=== PATIENT | female | born 1995 | race Caucasian/White ===

== ENCOUNTER 2016-07-05 18:16 | Emergency (ER) | payer BC, MEDICAID ==
[~2016-07-05] VITALS: Ht 157.5 cm; Wt 61.0 kg
[~2016-07-05 18:16] MED LIST: IBUP600T26 PO; LEVO.025 PO; LORTA5 PO; METO5TAB PO; OMEP20CA5 PO; OMEP20TA PO; POLY119S PO; POTA0.15 PO; PROM25SU8 PO
[2016-07-05 18:21] VITALS: BP 124/83; PULSE 123; RESP 17; TEMP 99.7; O2SAT 98
[2016-07-05] MEDS ORDERED: SODIUM CHLOR 0.9% 1000 ML INJ 1,000 ML IV SCH (18:37)
[2016-07-05 18:45] VITALS: O2SAT 98
[2016-07-05 18:45] LABS: BLOOD, URINE LARGE (NEG); GLUCOSE,URINE NEG (NEG); KETONE, URINE 15 mg/dL (NEG)
[2016-07-05] MEDS ORDERED: SODIUM CHLORIDE 0.9% FLUSH 5 ML FLUSH IVF PRN (18:45)
[2016-07-05] MEDS ORDERED: ONDANSETRON HCL 4 MG/2 ML VIAL IVP ONE (18:45)
[2016-07-05 18:55] LABS: AUTOMATED NEUTROPHIL # 8.6 TH/MM3 (1.8-7.7); BASOPHIL % 0.4 % (0.0-2.0); EOSINOPHIL # 0.1 TH/MM3 (0-0.4); HEMATOCRIT 40.8 % (35.0-46.0); HEMO FLAGS DIFF FINAL; LYMPH % 9.3 % (9.0-44.0); MEAN CELL VOLUME 88.9 FL (80.0-100.0); MEAN CORPUSCULAR HEMOGLOBIN 30.2 PG (27.0-34.0); MONO % 8.4 % (0.0-8.0); NEUT % 80.9 % (16.0-70.0); PLATELET COUNT 197 TH/MM3 (150-450); RED BLOOD COUNT 4.59 MIL/MM3 (4.00-5.30); RED CELL DISTRIBUTION WIDTH 13.4 % (11.6-17.2); WHITE BLOOD COUNT 10.6 TH/MM3 (4.0-11.0)
[2016-07-05 18:57] LABS: NITRITE,URINE POS (NEG)
[2016-07-05 19:00] LABS: METHOD OF COLLECTION CLEAN CATCH; MUCUS URINE MOD /lpf (OCC); URINE COLOR YELLOW (YELLW/STRAW)
[2016-07-05] MEDS ORDERED: KETOROLAC TROMETHAMINE 30 MG/ML (IVP) VIAL IV PUSH ONE (19:00)
[2016-07-05 19:01] LABS: BACTERIA, URINE MOD /hpf; COMMENT (UR) CULTURE INDICATED; CULTURE IF INDICATED CULTURE INDICATED; RBC, URINE 100-200 /hpf (0-3); SQUAMOUS EPITHELIAL CELL URINE 0-5 /hpf (0-5)
[2016-07-05 19:02] LABS: CHLORIDE 105 MEQ/L (98-107); POTASSIUM 3.4 MEQ/L (3.5-5.1); SODIUM (NA) 141 MEQ/L (136-145)
[2016-07-05 19:05] LABS: ANION GAP 11 MEQ/L (5-15); BICARBONATE 25.5 MEQ/L (21.0-32.0)
[2016-07-05 19:06] LABS: BLOOD UREA NITROGEN 8 MG/DL (7-18)
[2016-07-05 19:08] LABS: ALT (GPT) 25 U/L (9-42)
[2016-07-05 19:09] LABS: AST (GOT) 11 U/L (16-38); GLOMERULAR FILTRATION RATE 103 ML/MIN (>89)
[2016-07-05 19:10] LABS: TOTAL BILIRUBIN ADULT 0.4 MG/DL (0.2-1.0)
[2016-07-05 19:11] LABS: ALKALINE PHOSPHATASE 46 U/L (45-117)
[2016-07-05 19:42] VITALS: BP 125/79; PULSE 82; RESP 16; O2SAT 100
--- NOTE | 2016-07-05 20:08 | RADHPO ---
EXAM DATE/TIME: 07/05/2016 19:51 [facility] COMPARISON: No previous studies available for comparison. INDICATIONS : Left sided flank pain for three days. ORAL CONTRAST: No oral contrast ingested. RADIATION DOSE: 8.9 CTDIvol (mGy) MEDICAL HISTORY : Pancreatitis. Gastroesophageal reflux disease. Ovarian cyst. Gastroparesis. SURGICAL HISTORY : None. ENCOUNTER: Initial ACUITY: 3 days PAIN SCALE: 6/10 LOCATION: Left flank TECHNIQUE: Volumetric scanning of the abdomen and pelvis was performed. Using automated exposure control and ad justment of the mA and/or kV according to patient size, radiation dose was kept as low as reasonably achievable to obtain optimal diagnostic quality images. FINDINGS: LOWER LUNGS: The visualized lower lungs are clear. LIVER: Homogeneous density without lesion. There is no dilation of the biliary tree. No calcified gallston es. SPLEEN: Normal size without lesion. PANCREAS: Within normal limits. KIDNEYS: Normal in size and shape. There is no mass, stone, or hydronephrosis. ADRENAL GLANDS: Within normal limits. VASCULAR: There is no aortic aneurysm. BOWEL/MESENTERY: The stomach, small bowel, and colon demonstrate no acute abnormality. There is no free intraperitone al air or fluid. ABDOMINAL WALL: Within normal limits. RETROPERITONEUM: There is no lymphadenopathy. BLADDER: There appears to be mild concentric bladder wall thickening and there is slight perivesical induratio n. Appearance is suggestive of cystitis. REPRODUCTIVE: Small volume of free pelvic fluid. INGUINAL: There is no lymphadenopathy or hernia. MUSCULOSKELETAL: Within normal limits for patient age. CONCLUSION: Findings suggestive of cystitis. Minimal nonspecific pelvic fluid. Paul Aguilera MD on July 05, 2016 at 20:04 Board Certified Radiologist. This report was verified electronically.
[2016-07-05] MEDS ORDERED: CIPROFLOXACIN 500 MG TAB PO ONE (20:15)
--- NOTE | 2016-07-05 20:22 | PD ---
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 Patient states that this is different than her normal gastroparesis her pancreatitis pain. However she did say that she had epigastric pain earlier in the week. She states she's had nausea and vomited once or twice which is nonbloody and nonbilious in nature. Patient denies any fever. She still states that she had an episode of hematuria which she thought might of been vaginal in nature but she examined herself closely and found that she was passing some mucus from her urethral orifice. Patient states her periods are fairly regular and she just got over 12 weeks ago. Denies possibility for at this time. Patient states her abdominal pain is sharp in nature and nonradiating PFSH Past Medical History Anxiety: No Depression: Yes Cancer: No Cardiovascular Problems: No Diminished Hearing: No Endocrine: No Gastrointestinal Disorders: Yes (INFLAMED COLON, GASTROPARESIS, idiopathic pancreatitis) GERD: Yes Genitourinary: No Headaches: Yes Immune Disorder: No Musculoskeletal: No Neurologic: No Psychiatric: Yes Reproductive: Yes Respiratory: No Immunizations Current: Yes Pancreatitis: Yes Tetanus Vaccination: Unknown Influenza Vaccination: No ?: Not LMP: 06/23/2016 Past Surgical History Surgical History: No Previous Surgery Social History Alcohol Use: No Tobacco Use: Yes (1/2 ppd) Substance Use: No Allergies-Medications (Allergen,Severity, Reaction): Coded Allergies: PEANUTS (Verified Allergy, Severe, Anaphylaxis, 07/05/16) Reported Meds & Prescriptions Reported Meds & Active Scripts Active Zofran Odt (Ondansetron Odt) 4 Mg Tab 4 Mg SL Q6HR PRN Cipro (Ciprofloxacin HCl) 500 Mg Tab 500 Mg PO BID 7 Days Ibuprofen 600 Mg Tab 600 Mg PO Q6H PRN Review of Systems Except as stated in HPI: all other systems reviewed are Neg Physical Exam Narrative GENERAL: Well-developed well-nourished in no apparent distress, pleasant demeanor. SKIN: Warm and dry. HEAD: Atraumatic. Normocephalic. EYES: Pupils equal and round. No scleral icterus. No injection or drainage. ENT: No nasal bleeding or discharge. Mucous membranes pink and moist. NECK: Trachea midline. No JVD. CARDIOVASCULAR: Regular rate and rhythm. No murmur appreciated. RESPIRATORY: No accessory muscle use. Clear to auscultation. Breath sounds equal bilaterally. GASTROINTESTINAL: Abdomen soft, non-tender, nondistended. Hepatic and splenic margins not palpable. Abdomen is benign however there is some mild CVA tenderness on the left and negative on the right. Genitourinary: Offered and patient declined. MUSCULOSKELETAL: No obvious deformities. No clubbing. No cyanosis. No edema. NEUROLOGICAL: Awake and alert. No obvious cranial nerve deficits. Motor grossly within normal limits. Normal speech. PSYCHIATRIC: Appropriate mood and affect; insight and judgment normal. Data Data Last Documented VS Vital Signs Date Time Temp Pulse Resp B/P Pulse Ox O2 Delivery O2 Flow Rate FiO2 07/05/16 21:27 85 16 132/77 99 07/05/16 19:42 Room Air 07/05/16 18:21 99.7 Orders Urinalysis - C+S If Indicated (07/05/16 18:22) Ed Urine Pregnancytest Poc (07/05/16 18:22) Complete Blood Count With Diff (07/05/16 18:37) Comprehensive Metabolic Panel (07/05/16 18:37) Lipase (07/05/16 18:37) Iv Access Insert/Monitor (07/05/16 18:37) Ecg Monitoring (07/05/16 18:37) Oximetry (07/05/16 18:37) Ondansetron Inj (Zofran Inj) (07/05/16 18:45) Sodium Chlor 0.9% 1000 Ml Inj (Ns 1000 M (07/05/16 18:37) Sodium Chloride 0.9% Flush (Ns Flush) (07/05/16 18:45) Ketorolac Inj (Toradol Inj) (07/05/16 19:00) Urine Culture (07/05/16 18:20) Ed Poc Ultrasound (07/05/16 ) Ct Abd/Pel W/O Iv Contrast (07/05/16 ) Ciprofloxacin (Cipro) (07/05/16 20:15) Labs Laboratory Tests Test 07/05/16 07/05/16 18:20 18:45 Urine Collection Type CLEAN CATCH Urine Color YELLOW Urine Turbidity MOD Urine pH 6.0 Urine Specific [place] 1.028 Urine Protein 100 mg/dL Urine Glucose (UA) NEG mg/dL Urine Ketones 15 mg/dL Urine Occult Blood LARGE Urine Nitrite POS Urine Bilirubin NEG Urine Leukocyte Esterase TRACE Urine RBC 100-200 /hpf Urine WBC 50-99 /hpf Urine Squamous Epithelial 0-5 /hpf Cells Urine Bacteria MOD /hpf Urine Mucus MOD /lpf Microscopic Urinalysis Comment CULTURE INDICATED White Blood Count 10.6 TH/MM3 Red Blood Count 4.59 MIL/MM3 Hemoglobin 13.9 GM/DL Hematocrit 40.8 % Mean Corpuscular Volume 88.9 FL Mean Corpuscular Hemoglobin 30.2 PG Mean Corpuscular Hemoglobin 34.0 % Concent Red Cell Distribution Width 13.4 % Platelet Count 197 TH/MM3 Mean Platelet Volume 8.0 FL Neutrophils (%) (Auto) 80.9 % Lymphocytes (%) (Auto) 9.3 % Monocytes (%) (Auto) 8.4 % Eosinophils (%) (Auto) 1.0 % Basophils (%) (Auto) 0.4 % Neutrophils # (Auto) 8.6 TH/MM3 Lymphocytes # (Auto) 1.0 TH/MM3 Monocytes # (Auto) 0.9 TH/MM3 Eosinophils # (Auto) 0.1 TH/MM3 Basophils # (Auto) 0.0 TH/MM3 CBC Comment DIFF FINAL Differential Comment Sodium Level 141 MEQ/L Potassium Level 3.4 MEQ/L Chloride Level 105 MEQ/L Carbon Dioxide Level 25.5 MEQ/L Anion Gap 11 MEQ/L Blood Urea Nitrogen 8 MG/DL Creatinine 0.73 MG/DL Estimat Glomerular Filtration 103 ML/MIN Rate Random Glucose 86 MG/DL Calcium Level 8.9 MG/DL Total Bilirubin 0.4 MG/DL Aspartate Amino Transf 11 U/L (AST/SGOT) Alanine Aminotransferase 25 U/L (ALT/SGPT) Alkaline Phosphatase 46 U/L Total Protein 7.4 GM/DL Albumin 3.7 GM/DL Lipase 133 U/L [facility] Medical Decision Making Medical Screen Exam Complete: Yes Emergency Medical Condition: Yes Differential Diagnosis Kidney stone, UTI, pyelonephritis, gastroparesis unlikely, pancreatitis, cholecystitis highly unlikely, gastritis. Narrative Course Patient was roomed in the emergency department, she was given Toradol IV after test was negative. She states she was still having some pain but appears comfortable. She drove herself here and is planning to drive home precluding any narcotic administration in the emergency department. She does appear comfortable and not in any distress. Laboratory workup the CBC BMP lipase and LFTs within normal limits. Physical examination. Urine is quite cloudy with mucous stranding. Is nitrate positive. Clinically would nitrate positive urine and some mild CVA tenderness she has pyelonephritis. An ultrasound was conducted at the bedside showing some possible left-sided hydronephrosis CT examination is therefore indicated to rule out kidney stones. CT examination performed and shows no acute kidney stones or any other abnormality. The patient was tolerating her ciprofloxacin prior to discharge. Discussed with her follow-up with a primary care physician and return to ED criteria including intractable nausea and vomiting and high fever. Procedures Procedure Narrative Bedside ultrasound: Views of the left and right kidney were obtained and patient possibly has a very mild amount of hydronephrosis on the left side. Normal on the right. No free fluid was observed in the abdomen. Diagnosis Primary Impression: Pyelonephritis Med/Other Pt SpecificInfo: Prescription(s) given Scripts Ondansetron Odt (Zofran Odt)4 Mg Tab4 Mg SL Q6HR PRN (Nausea/Vomiting) #30 TAB Ref 0 Prov:Yang Meek MD 07/05/16 Ciprofloxacin (Cipro)500 Mg [id number] Mg PO BID 7 Days Ref 0 Prov:Yang Meek MD 07/05/16 Ibuprofen 600 Mg [id number] Mg PO Q6H PRN (PAIN SCALE 1 TO 10) #20 TAB Ref 0 Prov:Yang Meek MD 07/05/16 Disposition: 01 DISCHARGE HOME Condition: Stable Yang Meek MD Jul 05, 2016 20:22
[2016-07-05] MEDS ORDERED: CIPR-9 PO (20:56)
[2016-07-05] MEDS ORDERED: ZOFR4TAB3 SL (20:56)
[2016-07-05] MEDS ORDERED: IBUP-232 PO (20:56)
[2016-07-05 21:27] VITALS: BP 132/77
[2016-07-13] MEDS ORDERED: NYST1000 SWISH-SWAL (15:22)
[2016-07-13] MEDS ORDERED: AUGM875T PO (15:22)
== END 2016-07-05 21:30 | disposition home or self-care (01) ==
LOC: PHED 18:16
DX: N12 Tubulo-interstitial nephritis, not specified as acute or chronic (principal); F17.210 Nicotine dependence, cigarettes, uncomplicated
CPT/HCPCS: 74176; 80053; 81001; 83690; 84703; 85025; 87077; 87086; 87186; 96361; 96374; 96375; 99284; J1885; J2405; J7030

== ENCOUNTER 2016-12-03 23:08 | Emergency (ER) | payer BC ==
[~2016-12-03 23:08] MED LIST changes: +AUGM875T PO; -IBUP600T26 PO; -LEVO.025 PO; -LORTA5 PO; -METO5TAB PO; +NYST1000 SWISH-SWAL; -OMEP20CA5 PO; -OMEP20TA PO; -POLY119S PO; -POTA0.15 PO; -PROM25SU8 PO; +WELL150T PO
[2016-12-03 23:09] VITALS: BP 122/87; PULSE 100; RESP 18; TEMP 98.8; O2SAT 100
[2016-12-03] MEDS ORDERED: REGL5TAB PO (23:52)
[2016-12-04 00:27] LABS: BACTERIA, URINE RARE /hpf; BLOOD, URINE LARGE (NEG); COMMENT (UR) CULTURE INDICATED; CULTURE IF INDICATED CULTURE INDICATED; GLUCOSE,URINE NEG (NEG); KETONE, URINE NEG (NEG); MUCUS URINE FEW /lpf (OCC); NITRITE,URINE NEG (NEG); PH, URINE 6.5 (5.0-8.5); SQUAMOUS EPITHELIAL CELL URINE 2 /hpf (0-5); URINE COLOR YELLOW (YELLW/STRAW)
[2016-12-04] MEDS ORDERED: ONDANSETRON HCL 4 MG/2 ML VIAL IVP ONE (00:45)
[2016-12-04] MEDS ORDERED: SODIUM CHLORIDE 0.9% FLUSH 10 ML FLUSH IV FLUSH PRN (00:45)
[2016-12-04] MEDS ORDERED: KETOROLAC TROMETHAMINE 30 MG/ML (IVP) VIAL IVP ONE (00:45)
[2016-12-04 00:53] LABS: AUTOMATED NEUTROPHIL # 8.2 TH/MM3 (1.8-7.7); BASOPHIL # 0.1 TH/MM3 (0-0.2); BASOPHIL % 0.6 % (0.0-2.0); EOSINOPHIL # 0.3 TH/MM3 (0-0.4); EOSINOPHIL % 2.6 % (0.0-4.0); HEMATOCRIT 35.2 % (35.0-46.0); HEMO FLAGS DIFF FINAL; LYMPH % 12.6 % (9.0-44.0); LYMPHOCYTE # 1.4 TH/MM3 (1.0-4.8); MEAN CELL VOLUME 79.5 FL (80.0-100.0); MEAN CORPUSCULAR HEMOGLOBIN 26.9 PG (27.0-34.0); MEAN CORPUSCULAR HGB CONC 33.8 % (32.0-36.0); MONO % 8.1 % (0.0-8.0); NEUT % 76.1 % (16.0-70.0); PLATELET COUNT 266 TH/MM3 (150-450); RED BLOOD COUNT 4.43 MIL/MM3 (4.00-5.30); RED CELL DISTRIBUTION WIDTH 15.8 % (11.6-17.2); WHITE BLOOD COUNT 10.8 TH/MM3 (4.0-11.0)
--- NOTE | 2016-12-04 01:13 | PD ---
HPI Chief Complaint: Complaint Time Seen by Provider: 00:28 Travel History International Travel<30 days: No Contact w/Intl Traveler<30days: No Traveled to known affect area: No History of Present Illness HPI This is a 20-year-old female with history of gastroparesis and kidney stones on the left presents emergency department for burning urination and right-sided flank and right lower quadrant abdominal pain. Patient states this been going on and off for the past few days, it was mild nausea and intermittent fever she states to 100F. Patient states she went to the hospital was diagnosed with urinary tract infection she stated that she never actually saw a provider but was placed on Bactrim which she has been taking. She states this is not having any improvement. She denies any chest pain shortness of breath. Patient states symptoms are moderate and gradually worsening. PFSH Past Medical History Anxiety: No Depression: Yes Cancer: No Cardiovascular Problems: No Diminished Hearing: No Endocrine: No Gastrointestinal Disorders: Yes (INFLAMED COLON, GASTROPARESIS, idiopathic pancreatitis) GERD: Yes Genitourinary: No Headaches: Yes Immune Disorder: No Musculoskeletal: No Neurologic: No Psychiatric: Yes Reproductive: Yes Respiratory: No Immunizations Current: Yes Pancreatitis: Yes ?: Not LMP: 11/30/16 Dilation and Curettage (D&C): Yes (09/18/16) Social History Alcohol Use: No Tobacco Use: Yes (1PPD ) Substance Use: No Allergies-Medications (Allergen,Severity, Reaction): Coded Allergies: PEANUTS (Verified Allergy, Severe, Anaphylaxis, 12/03/16) Reported Meds & Prescriptions Reported Meds & Active Scripts Active Ditropan (Oxybutynin Chloride) 5 Mg Tab 5 Mg PO Q12HR Reported Reglan (Metoclopramide HCl) 5 Mg Tab 5 Mg PO BID Review of Systems Except as stated in HPI: all other systems reviewed are Neg Physical Exam Narrative GENERAL: Well-developed well-nourished, slightly uncomfortable. Nontoxic appearance. SKIN: Focused skin assessment warm/dry. HEAD: Atraumatic. Normocephalic. EYES: Pupils equal and round. No scleral icterus. No injection or drainage. ENT: No nasal bleeding or discharge. Mucous membranes pink and moist. NECK: Trachea midline. No JVD. CARDIOVASCULAR: Regular rate and rhythm. No murmur appreciated. RESPIRATORY: No accessory muscle use. Clear to auscultation. Breath sounds equal bilaterally. GASTROINTESTINAL: Abdomen soft, non-tender, nondistended. Hepatic and splenic margins not palpable. Minimal right-sided CVA tenderness and minimal right lower quadrant abdominal pain. The psoas sign is weakly positive. Dr. sign negative. MUSCULOSKELETAL: No obvious deformities. No clubbing. No cyanosis. No edema. NEUROLOGICAL: Awake and alert. No obvious cranial nerve deficits. Motor grossly within normal limits. Normal speech. PSYCHIATRIC: Appropriate mood and affect; insight and judgment normal. Data Data Last Documented VS Vital Signs Date Time Temp Pulse Resp B/P Pulse Ox O2 Delivery O2 Flow Rate FiO2 12/04/16 02:37 92 16 128/82 99 Room Air 12/03/16 23:09 98.8 Orders Urinalysis - C+S If Indicated (12/03/16 23:58) Ed Urine Pregnancytest Poc (12/03/16 23:58) Urine Culture (12/04/16 00:05) Complete Blood Count With Diff (12/04/16 00:36) Comprehensive Metabolic Panel (12/04/16 00:36) Lipase (12/04/16 00:36) Ct Abd/Pel W Iv Contrast(Rout) (12/04/16 00:36) Iv Access Insert/Monitor (12/04/16 00:36) Ecg Monitoring (12/04/16 00:36) Oximetry (12/04/16 00:36) Ondansetron Inj (Zofran Inj) (12/04/16 00:45) Sodium Chloride 0.9% Flush (Ns Flush) (12/04/16 00:45) Ketorolac Inj (Toradol Inj) (12/04/16 00:45) Iohexol 350 Inj (Omnipaque 350 Inj) (12/04/16 01:45) Labs Laboratory Tests Test 12/04/16 12/04/16 00:05 00:48 Urine Color YELLOW Urine Turbidity HAZY Urine pH 6.5 Urine Specific [place] 1.014 Urine Protein 30 mg/dL Urine Glucose (UA) NEG mg/dL Urine Ketones NEG mg/dL Urine Occult Blood LARGE Urine Nitrite NEG Urine Bilirubin NEG Urine Urobilinogen LESS THAN 2.0 MG/DL Urine Leukocyte Esterase LARGE Urine RBC /hpf Urine WBC 168 /hpf Urine Squamous Epithelial 2 /hpf Cells Urine Bacteria RARE /hpf Urine Mucus FEW /lpf Microscopic Urinalysis Comment CULTURE INDICATED White Blood Count 10.8 TH/MM3 Red Blood Count 4.43 MIL/MM3 Hemoglobin 11.9 GM/DL Hematocrit 35.2 % Mean Corpuscular Volume 79.5 FL Mean Corpuscular Hemoglobin 26.9 PG Mean Corpuscular Hemoglobin 33.8 % Concent Red Cell Distribution Width 15.8 % Platelet Count 266 TH/MM3 Mean Platelet Volume 8.6 FL Neutrophils (%) (Auto) 76.1 % Lymphocytes (%) (Auto) 12.6 % Monocytes (%) (Auto) 8.1 % Eosinophils (%) (Auto) 2.6 % Basophils (%) (Auto) 0.6 % Neutrophils # (Auto) 8.2 TH/MM3 Lymphocytes # (Auto) 1.4 TH/MM3 Monocytes # (Auto) 0.9 TH/MM3 Eosinophils # (Auto) 0.3 TH/MM3 Basophils # (Auto) 0.1 TH/MM3 CBC Comment DIFF FINAL Differential Comment Sodium Level 141 MEQ/L Potassium Level 3.8 MEQ/L Chloride Level 106 MEQ/L Carbon Dioxide Level 27.1 MEQ/L Anion Gap 8 MEQ/L Blood Urea Nitrogen 10 MG/DL Creatinine 0.75 MG/DL Estimat Glomerular Filtration 100 ML/MIN Rate Random Glucose 81 MG/DL Calcium Level 9.4 MG/DL Total Bilirubin 0.1 MG/DL Aspartate Amino Transf 16 U/L (AST/SGOT) Alanine Aminotransferase 24 U/L (ALT/SGPT) Alkaline Phosphatase 50 U/L Total Protein 8.0 GM/DL Albumin 3.8 GM/DL Lipase 159 U/L [facility] Medical Decision Making Medical Screen Exam Complete: Yes Emergency Medical Condition: Yes Differential Diagnosis UTI, pyelonephritis, kidney stone, appendicitis Narrative Course Patient was roomed emergency department, given Toradol which relieved her symptoms. Her UA does show red blood cells and white blood cells, the patient is on her cycle now. Nitrate negative urine however. CAT scan of her abdomen was performed which shows: Last 24 hours Impressions Abdomen/Pelvis CT 12/04/16 0036 Signed Impressions: Service Date/Time: Sunday, December 04, 2016 01:39 - CONCLUSION: 1. Circumferential wall thickening of the urinary bladder, presumably on the basis of cystitis. This is apparently recurrent has similar findings were seen on the prior CT. 2. Trace free fluid in the pelvic cul-de-sac, generally a physiologic amount for patient this age. 3. Normal appendix. Paul Walker MD Patient's blood work was reassuring. Discuss results with the patient and my opinion that this appears to be recurrent cystitis, need to consider another cause for cystitis other than urinary tract infection including interstitial cystitis. Encouraged patient to follow up with urologist. She is feeling better after Toradol. I discussed with her to continue taking the Bactrim. She will be placed on to [facility] for possible bladder spasms. Diagnosis Primary Impression: Cystitis Med/Other Pt SpecificInfo: Prescription(s) given Scripts Oxybutynin (Ditropan)5 Mg Tab5 Mg PO Q12HR #60 TAB Ref 0 Prov:Yang Meek MD 12/04/16 Disposition: 01 DISCHARGE HOME Condition: Stable Yang Meek MD Dec 04, 2016 01:13
[2016-12-04 01:14] LABS: ALKALINE PHOSPHATASE 50 U/L (45-117); TOTAL BILIRUBIN ADULT 0.1 MG/DL (0.2-1.0)
[2016-12-04 01:18] LABS: ALT (GPT) 24 U/L (9-42); ANION GAP 8 MEQ/L (5-15); AST (GOT) 16 U/L (16-38); BICARBONATE 27.1 MEQ/L (21.0-32.0); BLOOD UREA NITROGEN 10 MG/DL (7-18); CHLORIDE 106 MEQ/L (98-107); GLOMERULAR FILTRATION RATE 100 ML/MIN (>89); POTASSIUM 3.8 MEQ/L (3.5-5.1); SODIUM (NA) 141 MEQ/L (136-145)
[2016-12-04 01:30] VITALS: BP 136/90; PULSE 98; RESP 14; O2SAT 98
[2016-12-04] MEDS ORDERED: IOHEXOL 350 MG/ML 10 ML VIAL (for RAD DIAG) IV ONE (01:45)
--- NOTE | 2016-12-04 02:03 | RADRPT ---
EXAM DATE/TIME: 12/04/2016 01:39 [facility] COMPARISON: CT ABDOMEN & PELVIS W/O CONTRAST, July 05, 2016, 19:51. INDICATIONS : Right lower quadrant pain. IV CONTRAST: cc Omnipaque 350 (iohexol) IV ORAL CONTRAST: No oral contrast ingested. RADIATION DOSE: CTDIvol (mGy) MEDICAL HISTORY : Pancreatitis. Gastroparesis. Gastroesophageal reflux disease.Ovarian cysts. SURGICAL HISTORY : None. ENCOUNTER: Initial ACUITY: 3 days PAIN SCALE: 8/10 LOCATION: Right lower quadrant TECHNIQUE: Volumetric scanning of the abdomen and pelvis was performed. Using automated exposure control and ad justment of the mA and/or kV according to patient size, radiation dose was kept as low as reasonably achievable to obtain optimal diagnostic quality images. FINDINGS: LOWER LUNGS: The visualized lower lungs are clear. LIVER: Homogeneous density without lesion. There is no dilation of the biliary tree. No calcified gallston es. SPLEEN: Normal size without lesion. PANCREAS: Within normal limits. KIDNEYS: Normal in size and shape. There is no mass, stone or hydronephrosis. ADRENAL GLANDS: Within normal limits. VASCULAR: There is no aortic aneurysm. BOWEL/MESENTERY: The stomach, small bowel, and colon demonstrate no acute abnormality. No free air. The appendix is w ell-visualized, normal. ABDOMINAL WALL: Within normal limits. RETROPERITONEUM: There is no lymphadenopathy. BLADDER: Marked, diffuse wall thickening. REPRODUCTIVE: CT appearance of the uterus and bilateral adnexal regions within normal limits. Trace free fluid seen in the pelvic cul-de-sac. INGUINAL: There is no lymphadenopathy or hernia. MUSCULOSKELETAL: Within normal limits for patient age. CONCLUSION: 1. Circumferential wall thickening of the urinary bladder, presumably on the basis of cystitis. This is apparently recurrent has similar findings were seen on the prior CT. 2. Trace free fluid in the pelvic cul-de-sac, generally a physiologic amount for patient this age. 3. Normal appendix. Paul Walker MD on December 04, 2016 at 1:58 Board Certified Radiologist. This report was verified electronically.
[2016-12-04] MEDS ORDERED: OXYB5TAB10 PO (02:32)
[2016-12-04 02:37] VITALS: BP 128/82; PULSE 92; RESP 16; O2SAT 99
== END 2016-12-04 02:52 | disposition home or self-care (01) ==
LOC: NEPC 23:08
DX: N30.90 Cystitis, unspecified without hematuria (principal); B95.7 Other staphylococcus as the cause of diseases classified elsewhere; B95.1 Streptococcus, group B, as the cause of diseases classified elsewhere; R10.31 Right lower quadrant pain; R11.0 Nausea; F17.200 Nicotine dependence, unspecified, uncomplicated; Z86.59 Personal history of other mental and behavioral disorders; Z87.19 Personal history of other diseases of the digestive system; Z87.42 Personal history of other diseases of the female genital tract
CPT/HCPCS: 74177; 80053; 81001; 83690; 84703; 85025; 86403; 87077; 87086; 87186; 96374; 96375; 99285; J1885; J2405; Q9967

== ENCOUNTER 2017-06-05 08:49 | Emergency (ER) | payer BC ==
[~2017-06-05] VITALS: Ht 160 cm; Wt 69.0 kg
[~2017-06-05 08:49] MED LIST changes: -AUGM875T PO; -NYST1000 SWISH-SWAL; +OXYB5TAB8 PO; +REGL5TAB PO
[2017-06-05 08:55] VITALS: BP 125/56; PULSE 102; RESP 16; TEMP 97.6; O2SAT 100
[2017-06-05] MEDS ORDERED: TYLETAB34 PO (09:01)
[2017-06-05] MEDS ORDERED: SODIUM CHLOR 0.9% 1000 ML INJ 1,000 ML IV SCH (09:13)
[2017-06-05] MEDS ORDERED: MORPHINE SULFATE 4 MG/ML INJ IV PUSH ONE (09:15)
[2017-06-05] MEDS ORDERED: ONDANSETRON HCL 4 MG/2 ML VIAL IVP ONE (09:15)
--- NOTE | 2017-06-05 09:22 | PD ---
HPI Chief Complaint: Abdominal Pain Time Seen by Provider: 09:12 Travel History International Travel<30 days: No Contact w/Intl Traveler<30days: No Traveled to known affect area: No History of Present Illness HPI onset of epigastric pain that radiated to her back started at 3am today, 02/04, assoc with n/v. patient denies any alleviating/aggravating factors. pt denies assoc factors such as fever/squires/cp/d/vag discharge/hmaturia/urgency/frequency all: peanut pmhx: pancreatitis, ovarian cyst, gerd, kidney infection, pshx:denies PFSH Past Medical History ADHD: No Autoimmune Disease: Yes Anxiety: No Depression: Yes Cancer: No Cardiovascular Problems: No Diabetes: No Diminished Hearing: No Endocrine: Yes Gastrointestinal Disorders: Yes (INFLAMED COLON, GASTROPARESIS, idiopathic pancreatitis) GERD: Yes Genitourinary: No Headaches: Yes Immune Disorder: No Implanted Vascular Access Dvce: No Musculoskeletal: No Neurologic: No Psychiatric: Yes Reproductive: Yes Respiratory: No Immunizations Current: Yes Migraines: Yes Pancreatitis: Yes Seizures: No Thyroid Disease: Yes (hypo) Ulcer: No Tetanus Vaccination: < 5 Years Influenza Vaccination: No ?: Not LMP: 05/05/17 Ovarian Cysts: Yes Dilation and Curettage (D&C): Yes (09/18/16) Social History Alcohol Use: No Tobacco Use: Yes (1PPD ) Substance Use: No Allergies-Medications (Allergen,Severity, Reaction): Coded Allergies: peanut (Unverified Allergy, Severe, Anaphylaxis, 06/05/17) Reported Meds & Prescriptions Reported Meds & Active Scripts Active Reported Tylenol-Codeine #3 (Acetaminophen-Codeine) 300-30 mg Tab 1-2 Tab PO Q4H PRN Review of Systems Except as stated in HPI: all other systems reviewed are Neg General / Constitutional: No: Fever Eyes: No: Visual changes HENT: No: Headaches Cardiovascular: No: Chest Pain or Discomfort Respiratory: No: Shortness of Breath Gastrointestinal: Positive: Nausea, Vomiting, Abdominal Pain Genitourinary: No: Dysuria Musculoskeletal: No: Pain Skin: No Rash Neurologic: No: Weakness Psychiatric: No: Depression Endocrine: No: Polydipsia Hematologic/Lymphatic: No: Easy Bruising Physical Exam Narrative GENERAL: SKIN: Warm and dry. HEAD: Atraumatic. Normocephalic. EYES: Pupils equal and round. No scleral icterus. No injection or drainage. ENT: No nasal bleeding or discharge. Mucous membranes pink and moist. NECK: Trachea midline. No JVD. CARDIOVASCULAR: Regular rate and rhythm. RESPIRATORY: No accessory muscle use. Clear to auscultation. Breath sounds equal bilaterally. GASTROINTESTINAL: Abdomen soft, epig tt percussion, nondistended. MUSCULOSKELETAL: Extremities without clubbing, cyanosis, or edema. No obvious deformities. NEUROLOGICAL: Awake and alert. No obvious cranial nerve deficits. Motor grossly within normal limits. Five out of 5 muscle strength in the arms and legs. Normal speech. PSYCHIATRIC: Appropriate mood and affect; insight and judgment normal. Data Data Last Documented VS Vital Signs Date Time Temp Pulse Resp B/P (MAP) Pulse Ox O2 Delivery O2 Flow Rate FiO2 06/05/17 10:22 98 Room Air 06/05/17 09:02 16 06/05/17 08:55 97.6 102 125/56 (79) Orders Orders Urinalysis - C+S If Indicated (06/05/17 08:52) Ed Urine Pregnancytest Poc (06/05/17 08:52) Complete Blood Count With Diff (06/05/17 09:13) Comprehensive Metabolic Panel (06/05/17 09:13) Lipase (06/05/17 09:13) Ct Abd/Pel W/O Iv Contrast (06/05/17 09:13) Iv Access Insert/Monitor (06/05/17 09:13) Ecg Monitoring (06/05/17 09:13) Oximetry (06/05/17 09:13) NPO (06/05/17 09:13) Morphine Inj (Morphine Inj) (06/05/17 09:15) Ondansetron Inj (Zofran Inj) (06/05/17 09:15) Sodium Chlor 0.9% 1000 Ml Inj (Ns 1000 M (06/05/17 09:13) Urine Culture (06/05/17 09:18) Ceftriaxone Inj (Rocephin Inj) (06/05/17 10:15) Labs Laboratory Tests Test 06/05/17 09:18 06/05/17 09:27 Urine Collection Type CLEAN CATCH Urine Color YELLOW Urine Turbidity SLIGHTY CLOUDY Urine pH 8.0 Urine Specific [place] 1.024 Urine Protein 30 mg/dL Urine Glucose (UA) NEG mg/dL Urine Ketones NEG mg/dL Urine Occult Blood TRACE Urine Nitrite POS Urine Bilirubin NEG Urine Leukocyte Esterase LARGE Urine RBC 0-3 /hpf Urine WBC 25-49 /hpf Urine WBC Clumps OCC Urine Bacteria MANY /hpf Microscopic Urinalysis Comment CULTURE INDICATED White Blood Count 8.2 TH/MM3 Red Blood Count 4.51 MIL/MM3 Hemoglobin 12.3 GM/DL Hematocrit 36.8 % Mean Corpuscular Volume 81.6 FL Mean Corpuscular Hemoglobin 27.2 PG Mean Corpuscular Hemoglobin Concent 33.3 % Red Cell Distribution Width 15.2 % Platelet Count 244 TH/MM3 Mean Platelet Volume 8.1 FL Neutrophils (%) (Auto) 77.1 % Lymphocytes (%) (Auto) 12.0 % Monocytes (%) (Auto) 7.4 % Eosinophils (%) (Auto) 3.0 % Basophils (%) (Auto) 0.5 % Neutrophils # (Auto) 6.4 TH/MM3 Lymphocytes # (Auto) 1.0 TH/MM3 Monocytes # (Auto) 0.6 TH/MM3 Eosinophils # (Auto) 0.2 TH/MM3 Basophils # (Auto) 0.0 TH/MM3 CBC Comment DIFF FINAL Differential Comment Blood Urea Nitrogen 14 MG/DL Creatinine 0.87 MG/DL Random Glucose 92 MG/DL Total Protein 7.5 GM/DL Albumin 3.7 GM/DL Calcium Level 9.0 MG/DL Alkaline Phosphatase 45 U/L Aspartate Amino Transf (AST/SGOT) 12 U/L Alanine Aminotransferase (ALT/SGPT) 26 U/L Total Bilirubin 0.4 MG/DL Sodium Level 139 MEQ/L Potassium Level 3.8 MEQ/L Chloride Level 106 MEQ/L Carbon Dioxide Level 25.4 MEQ/L Anion Gap 8 MEQ/L Estimat Glomerular Filtration Rate 83 ML/MIN Lipase 151 U/L [facility] Medical Decision Making Medical Screen Exam Complete: Yes Emergency Medical Condition: Yes Medical Record Reviewed: Yes Differential Diagnosis biliary colic v gastrititis v pancreatitis v pregn related Narrative Course PT NOT FOUND TO HAVE PANCREATITIS, ON CT NO COLITIS/APPY/KIDNEY STONE BUT DID NOTE BLADDER INFLAMMATION....NL CBC, NL CMP WELL. Diagnosis Primary Impression: ASCENDING CYSTITIS Patient Instructions: General Instructions, Urinary Tract Infection in Women ( ED) Scripts Ondansetron Odt (Zofran Odt) 4 Mg Tab 4 MG SL Q6HR Y for Nausea/Vomiting, #20 TAB 0 Refills Prov: Sacha Zazueta MD 06/05/17 Fluconazole (Diflucan) 150 Mg Tab 150 MG PO ONCE for Infection, #1 TAB 0 Refills Prov: Sacha Zazueta MD 06/05/17 Ciprofloxacin (Cipro) 500 Mg Tab 500 MG PO BID for Infection for 10 Days, #20 TAB 0 Refills Prov: Sacha Zazueta MD 06/05/17 Disposition: 01 DISCHARGE HOME Condition: Stable Sacha Zazueta MD Jun 05, 2017 09:22
[2017-06-05 09:29] LABS: AUTOMATED NEUTROPHIL # 6.4 TH/MM3 (1.8-7.7); BASOPHIL % 0.5 % (0.0-2.0); EOSINOPHIL # 0.2 TH/MM3 (0-0.4); HEMATOCRIT 36.8 % (35.0-46.0); MEAN CELL VOLUME 81.6 FL (80.0-100.0); MEAN CORPUSCULAR HEMOGLOBIN 27.2 PG (27.0-34.0); MEAN CORPUSCULAR HGB CONC 33.3 % (32.0-36.0); MONO % 7.4 % (0.0-8.0); NEUT % 77.1 % (16.0-70.0); PLATELET COUNT 244 TH/MM3 (150-450); RED BLOOD COUNT 4.51 MIL/MM3 (4.00-5.30); RED CELL DISTRIBUTION WIDTH 15.2 % (11.6-17.2); WHITE BLOOD COUNT 8.2 TH/MM3 (4.0-11.0)
[2017-06-05 09:30] LABS: HEMO FLAGS DIFF FINAL
[2017-06-05 09:34] LABS: GLUCOSE,URINE NEG (NEG); KETONE, URINE NEG (NEG); NITRITE,URINE POS (NEG)
[2017-06-05 09:37] LABS: BLOOD, URINE TRACE (NEG)
[2017-06-05 09:39] LABS: METHOD OF COLLECTION CLEAN CATCH; URINE COLOR YELLOW (YELLW/STRAW)
[2017-06-05 09:40] LABS: BACTERIA, URINE MANY /hpf; COMMENT (UR) CULTURE INDICATED; CULTURE IF INDICATED CULTURE INDICATED; RBC, URINE 0-3 /hpf (0-3)
[2017-06-05 09:52] LABS: BICARBONATE 25.4 MEQ/L (21.0-32.0)
[2017-06-05 09:54] LABS: ANION GAP 8 MEQ/L (5-15); CHLORIDE 106 MEQ/L (98-107); POTASSIUM 3.8 MEQ/L (3.5-5.1); SODIUM (NA) 139 MEQ/L (136-145)
[2017-06-05 09:55] LABS: GLOMERULAR FILTRATION RATE 83 ML/MIN (>89)
[2017-06-05 09:56] LABS: ALT (GPT) 26 U/L (9-42)
[2017-06-05 09:57] LABS: TOTAL BILIRUBIN ADULT 0.4 MG/DL (0.2-1.0)
[2017-06-05 09:58] LABS: ALKALINE PHOSPHATASE 45 U/L (45-117)
[2017-06-05 10:02] LABS: AST (GOT) 12 U/L (16-38)
[2017-06-05 10:03] LABS: BLOOD UREA NITROGEN 14 MG/DL (7-18)
--- NOTE | 2017-06-05 10:13 | RADRPT ---
EXAM DATE/TIME: 06/05/2017 09:53 [facility] COMPARISON: CT ABDOMEN & PELVIS W CONTRAST, December 04, 2016, 1:39. CT ABDOMEN & PELVIS W/O CONTRAST, July 05 017, 19:51. INDICATIONS : Upper abdominal pain.Nausea, vomiting. ORAL CONTRAST: No oral contrast ingested. RADIATION DOSE: 11.08 CTDIvol (mGy) MEDICAL HISTORY : Pancreatitis. Gastroparesis, kidney infections, ovarian cyst. SURGICAL HISTORY : None. ENCOUNTER: Initial ACUITY: 1 day PAIN SCALE: 6/10 LOCATION: middle toward right upper abdomen TECHNIQUE: Volumetric scanning of the abdomen and pelvis was performed. Using automated exposure control and ad justment of the mA and/or kV according to patient size, radiation dose was kept as low as reasonably achievable to obtain optimal diagnostic quality images. DICOM format image data is available electro nically for review and comparison. FINDINGS: LOWER LUNGS: The visualized lower lungs are clear. LIVER: Homogeneous density without lesion. There is no dilation of the biliary tree. Under distended gallb ladder. No calcified gallstones. SPLEEN: Normal size without lesion. PANCREAS: Within normal limits. KIDNEYS: Normal in size and shape. There is no mass, stone, or hydronephrosis. ADRENAL GLANDS: Within normal limits. VASCULAR: There is no aortic aneurysm. BOWEL/MESENTERY: The stomach, small bowel, and colon demonstrate no acute abnormality. Appendix is visualized and norm al in appearance. There is no free intraperitoneal air or fluid. ABDOMINAL WALL: Within normal limits. RETROPERITONEUM: There is no lymphadenopathy. BLADDER: Redemonstration of circumferential bladder wall thickening REPRODUCTIVE: 2.1 x 2.7 cm left adnexal cystic lesion, likely ovarian cyst. Uterus is unremarkable for age. INGUINAL: There is no lymphadenopathy or hernia. MUSCULOSKELETAL: Within normal limits for patient age. CONCLUSION: 1. Redemonstration of circumferential wall thickening of the urinary bladder the, the presumably cyst itis. This is a recurrent finding noted on multiple prior CT examinations. 2. 2.7 cm left adnexal cystic lesion, likely ovarian cyst. 3. Normal appendix. 4. No radiopaque renal calculi or obstructive uropathy. Say Omalley MD on June 05, 2017 at 10:08 Board Certified Radiologist. This report was verified electronically.
[2017-06-05] MEDS ORDERED: cefTRIAXone INJ 1,000 MG in SODIUM CHLORIDE 0.9% INJ 100 ML IV ONE (10:15)
[2017-06-05 10:22] VITALS: O2SAT 98
[2017-06-05] MEDS ORDERED: CIPR-9 PO (11:40)
[2017-06-05] MEDS ORDERED: ZOFR4TAB3 SL (11:40)
[2017-06-05] MEDS ORDERED: DIFL150T PO (11:40)
== END 2017-06-05 12:31 | disposition home or self-care (01) ==
LOC: PHED 08:49
DX: N30.80 Other cystitis without hematuria (principal); R11.2 Nausea with vomiting, unspecified; M54.9 Dorsalgia, unspecified; B96.20 Unspecified Escherichia coli [E. coli] as the cause of diseases classified elsewhere; E07.9 Disorder of thyroid, unspecified; F17.200 Nicotine dependence, unspecified, uncomplicated; Z86.59 Personal history of other mental and behavioral disorders; Z87.19 Personal history of other diseases of the digestive system; Z87.42 Personal history of other diseases of the female genital tract
CPT/HCPCS: 74176; 80053; 81001; 83690; 84703; 85025; 87077; 87086; 87186; 96361; 96365; 96366; 96375; 99285; J0696; J2270; J2405; J7030

== ENCOUNTER 2017-09-08 14:39 | Emergency (ER) | payer BC ==
[~2017-09-08] VITALS: Ht 157.5 cm; Wt 63.0 kg
[~2017-09-08 14:39] MED LIST changes: +CIPR-9 PO; +DIFL150T PO; -OXYB5TAB8 PO; -REGL5TAB PO; +TYLETAB34 PO; -WELL150T PO; +ZOFR4TAB3 SL
[2017-09-08 14:51] VITALS: BP 153/69; PULSE 86; RESP 16; TEMP 97.9; O2SAT 99
[2017-09-08] MEDS ORDERED: ZOFR4TAB3 SL (15:18)
--- NOTE | 2017-09-08 15:25 | PD ---
HPI Chief Complaint: GI Complaint Time Seen by Provider: 15:07 Travel History International Travel<30 days: No Contact w/Intl Traveler<30days: No Traveled to known affect area: No History of Present Illness HPI The patient was seen and examined in the presence of the nurse. She complains of abdominal cramps and nausea and vomiting. Duration 2 days. She has history of gastroparesis. She gets frequent attacks like this. She denies diarrhea or fever. Symptom severity is mild. No alleviating factors PFSH Past Medical History ADHD: No Autoimmune Disease: Yes Anxiety: No Depression: Yes Cancer: No Cardiovascular Problems: No Diabetes: No Diminished Hearing: No Endocrine: Yes Gastrointestinal Disorders: Yes (INFLAMED COLON, GASTROPARESIS, idiopathic pancreatitis) GERD: Yes Genitourinary: No Headaches: Yes Immune Disorder: No Implanted Vascular Access Dvce: No Musculoskeletal: No Neurologic: No Psychiatric: Yes Reproductive: Yes Respiratory: No Immunizations Current: Yes Migraines: Yes Pancreatitis: Yes Seizures: No Thyroid Disease: Yes (hypo) Ulcer: No Tetanus Vaccination: Unknown ?: Not LMP: 2 WEEKS Ovarian Cysts: Yes Dilation and Curettage (D&C): Yes (09/18/16) Social History Alcohol Use: No Tobacco Use: Yes (1PPD ) Substance Use: No Allergies-Medications (Allergen,Severity, Reaction): Coded Allergies: peanut (Unverified Allergy, Severe, Anaphylaxis, 09/08/17) codeine (Verified Allergy, Unknown, 09/08/17) Reported Meds & Prescriptions Reported Meds & Active Scripts Active Zofran Odt (Ondansetron Odt) 4 Mg Tab 4 Mg SL Q6HR PRN Review of Systems General / Constitutional: No: Fever HENT: No: Headaches Cardiovascular: No: Chest Pain or Discomfort Respiratory: No: Cough Gastrointestinal: Positive: Nausea, Vomiting, Abdominal Pain Physical Exam Narrative GENERAL: Well-nourished, well-developed patient in no apparent distress. SKIN: Focused skin assessment reveals no rash and nodules. Skin is Warm and dry. HEAD: Atraumatic. Normocephalic. EYES: Pupils equal and round. No scleral icterus. No injection or drainage. ENT: No nasal bleeding or discharge. Mucous membranes pink and moist. NECK: Trachea midline. No JVD. CARDIOVASCULAR: Regular rate and rhythm. No murmur appreciated. RESPIRATORY: No accessory muscle use. Clear to auscultation. Breath sounds equal bilaterally. GASTROINTESTINAL: Abdomen soft, non-tender, nondistended. Hepatic and splenic margins not palpable. MUSCULOSKELETAL: No obvious deformities. No clubbing. No cyanosis. No edema. NEUROLOGICAL: Awake and alert. No obvious cranial nerve deficits. Motor grossly within normal limits. Normal speech. PSYCHIATRIC: Appropriate mood and affect; insight and judgment normal. Data Data Last Documented VS Vital Signs Date Time Temp Pulse Resp B/P (MAP) Pulse Ox O2 Delivery O2 Flow Rate FiO2 09/08/17 15:02 16 09/08/17 14:51 97.9 86 153/69 (97) 99 Orders Orders Ed Urine Pregnancytest Poc (09/08/17 15:17) Ondansetron Odt (Zofran Odt) (09/08/17 15:30) MDM Medical Decision Making Medical Screen Exam Complete: Yes Emergency Medical Condition: Yes Medical Record Reviewed: Yes Differential Diagnosis Gastroparesis, irritable bowel syndrome, gastroenteritis Narrative Course I have reviewed the patient's electronic medical record. She has had extensive workup here. 3 CTs of abdomen and pelvis last year. She has had ultrasound of gallbladder and gastric emptying scan Abdomen is soft and benign and nontender She looks euvolemic She is laughing and smiling and does not look to be in any distress We discussed options and I offered labs and IV fluids but she does not want to do it unless absolutely necessary which I do not believe it is I gave her a dose of Zofran Urine ordered I will prescribe some Zofran I offered some gastroparesis meds such as Reglan but she says they never help her and she does not want any Recommend primary care and GI follow-up Diagnosis Primary Impression: Gastroparesis Additional Impression: Nausea and vomiting Qualified Codes: R11.2 - Nausea with vomiting, unspecified Additional Instructions: Follow-up with primary care and GI I have recommended clear liquids for 24 hours, then gradually advance as tolerated. Med/Other Pt SpecificInfo: Prescription(s) given Scripts Ondansetron Odt (Zofran Odt) 4 Mg Tab 4 MG SL Q6HR Y for Nausea/Vomiting, #20 TAB 0 Refills Prov: Jostin Gruber MD 09/08/17 Disposition: 01 DISCHARGE HOME Condition: Stable Jostin Gruber MD Sep 08, 2017 15:25
[2017-09-08] MEDS ORDERED: ONDANSETRON ODT 4 MG TAB PO ONE (15:30)
[2017-09-08 16:00] LABS: BILIRUBIN, URINE NEG (NEG); BLOOD, URINE TRACE (NEG); GLUCOSE,URINE NEG (NEG); KETONE, URINE 15 mg/dL (NEG); NITRITE,URINE NEG (NEG); URINE COLOR YELLOW (YELLW/STRAW); URINE LEUKOCYTE ESTERASE NEG (NEG)
[2017-09-08 16:09] LABS: BACTERIA, URINE FEW /hpf; MUCUS URINE FEW /lpf (OCC); SQUAMOUS EPITHELIAL CELL URINE > 8 /hpf (0-5); WBC, URINE 0-2 /hpf (0-5)
== END 2017-09-08 16:10 | disposition home or self-care (01) ==
LOC: PHED 14:39
DX: K31.84 Gastroparesis (principal); F17.200 Nicotine dependence, unspecified, uncomplicated
CPT/HCPCS: 81001; 84703; 99283